=== PATIENT | female | born 2000 | race Caucasian/White ===

== ENCOUNTER 2021-03-21 05:42 | Emergency (ER) | payer MEDICAID ==
[~2021-03-21] VITALS: Ht 157.5 cm; Wt 51.0 kg
[~2021-03-21 05:42] MED LIST: BENZ1LOZ PO
[2021-03-21] MEDS ORDERED: magnesium 2GM in 50ml NS 50 ML IV ONE (06:40)
[2021-03-21] MEDS ORDERED: ringers solution, lacted 1,000 ML IV ONE (06:40)
[2021-03-21] MEDS ORDERED: haloperidol lactate 5mg/ml inj IM ONE (06:40)
[2021-03-21 06:50] LABS: CLARITY,URINE CLEAR (Clear); COLOR,URINE YELLOW (Yellow); GLUCOSE, URINE NEGATIVE (Neg); KETONES,URINE TRACE mg/dl (Neg); LEUKOCYTE ESTERASE ,URINE NEGATIVE (Neg); NITRITES, URINE NEGATIVE (Neg); OCCULT BLOOD,URINE LARGE (Neg); PH,URINE 6.5 (4.8-8.0); PROTEIN,URINE NEGATIVE (Neg); UROBILINOGEN,URINE 0.2 E.U/dL (0.2-1.0)
[2021-03-21 06:52] LABS: URINE HCG NEGATIVE (NEG)
[2021-03-21 06:53] LABS: UA COLLECTION TYPE CLN CATCH MIDSTREAM
[2021-03-21 07:03] LABS: SQUAMOUS EPITHELIAL CELL,UR MANY /LPF (FEW)
[2021-03-21 07:04] LABS: BACTERIA,URINE 1+ /HPF (Neg); TRANSITIONAL EPI CELLS,URINE FEW /HPF; WBC,URINE 0-4 /HPF (0-4)
[2021-03-21 07:34] LABS: BASOPHILS % (AUTO) 0.3 % (0-1); HEMATOCRIT 39.9 % (35.0-45.0); HEMOGLOBIN 13.6 g/dl (12.0-16.0); LYMPHOCYTES # (AUTO) 0.9 X10'3 (1.1-4.8); LYMPHOCYTES % (AUTO) 21.5 % (21-51); MEAN CORPUSCULAR HGB CONC 34.2 g/dL (33.0-36.5); MEAN CORPUSCULAR VOLUME 84.9 FL (78-98); MEAN PLATELET VOLUME 9.1 FL (7.4-10.4); MONOCYTES # (AUTO) 0.3 X10'3 (0-0.9); MONOCYTES % (AUTO) 7.1 % (2-12); NEUTROPHILS # (AUTO) 2.9 X10'3 (1.8-7.7); NEUTROPHILS % (AUTO) 70.1 % (42-75); PLATELET COUNT 225 X10'3 (140-440); RED CELL DISTRIBUTION WIDTH 12.5 % (11.5-14.5); WHITE BLOOD COUNT 4.1 X10'3 (4.5-11.0)
[2021-03-21 07:46] LABS: ALANINE AMINOTRANSFERASE 21 U/L (12-78); ALBUMIN 4.4 G/DL (3.4-5.0); ALBUMIN/GLOBULIN RATIO 1.2 (1.1-1.5); ALKALINE PHOSPHATASE 95 IU/L (20-180); ANION GAP 11 (8-16); ASPARTATE AMINO TRANSFERASE 18 U/L (10-37); BILIRUBIN,TOTAL 0.5 MG/DL (0.1-1.0); BLOOD UREA NITROGEN 10 MG/DL (7-18); BUN/CREATININE RATIO 16.7 (6.6-38.0); CALCIUM 8.8 MG/DL (8.5-10.1); CHLORIDE 104 MMOL/L (99-107); GLUCOSE 117 MG/DL (70-104); LIPASE 86 U/L (73-393); POTASSIUM 3.7 MMOL/L (3.5-5.1); SODIUM 140 MMOL/L (135-145); TOTAL CARBON DIOXIDE 24.6 MMOL/L (24-32); eGFR > 90 ML/MIN
[2021-03-21] MEDS ORDERED: diphenhydrAMINE 50 mg/ml inj IV ONE (08:40)
[2021-03-21] MEDS ORDERED: HALO5TAB PO (09:13)
[2021-03-21 11:12] VITALS: BP 132/68
== END 2021-03-21 09:35 | disposition home or self-care (01) ==
LOC: ER 05:43
DX: G43.D0 Abdominal migraine, not intractable (principal); R11.2 Nausea with vomiting, unspecified
CPT/HCPCS: 36415; 80053; 81001; 81025; 83690; 85025; 96365; 96366; 96372; 96375; 99284; J1200; J1630; J3475; J7120

== ENCOUNTER 2022-03-10 20:50 | Emergency (ER) | payer MEDICAID ==
[~2022-03-10] VITALS: Ht 157.5 cm; Wt 48.6 kg
[~2022-03-10 20:50] MED LIST changes: +HALO5TAB PO
[2022-03-10 20:52] VITALS: BP 128/83
[2022-03-10] MEDS ORDERED: hydrOXYzine 25 MG tablet PO ONE (21:25)
[2022-03-10] MEDS ORDERED: POLY17PO10 PO (21:26)
[2022-03-10] MEDS ORDERED: HYDR-3686 PO (21:26)
[2022-03-10] MEDS ORDERED: PHEN1SUP96 PR (21:26)
== END 2022-03-10 21:53 | disposition home or self-care (01) ==
LOC: ER 20:50
DX: K64.4 Residual hemorrhoidal skin tags (principal); F41.9 Anxiety disorder, unspecified; Z79.899 Other long term (current) drug therapy
CPT/HCPCS: 99283; Q0177

== ENCOUNTER 2023-06-10 22:42 | Emergency (ER) | payer MEDICAID ==
[~2023-06-10] VITALS: Ht 157.5 cm; Wt 54.5 kg
[~2023-06-10 22:42] MED LIST changes: +PHEN1SUP96 PR
[2023-06-10 22:45] VITALS: TEMP 98.8
[2023-06-11] MEDS ORDERED: HYDR-3965 PO (00:14)
[2023-06-11 01:13] VITALS: BP 117/82; PULSE 81; RESP 13; O2SAT 98
== END 2023-06-11 01:15 | disposition home or self-care (01) ==
LOC: ER 22:43
DX: S82.841A Displaced bimalleolar fracture of right lower leg, initial encounter for closed fracture (principal); Z79.899 Other long term (current) drug therapy; W01.0XXA Fall on same level from slipping, tripping and stumbling without subsequent striking against object, initial encounter; Y93.89 Activity, other specified; Y92.89 Other specified places as the place of occurrence of the external cause; Y99.8 Other external cause status
CPT/HCPCS: 29515; 73610; 99283; A6449

== ENCOUNTER 2023-06-26 09:46 | Day surgery (SDC) | payer MEDICAID ==
[2023-06-24 15:36] LABS: BILIRUBIN,URINE NEGATIVE (Neg); CLARITY,URINE CLEAR (Clear); COLOR,URINE YELLOW (Yellow); GLUCOSE, URINE NEGATIVE (Neg); KETONES,URINE TRACE mg/dl (Neg); LEUKOCYTE ESTERASE ,URINE NEGATIVE (Neg); NITRITES, URINE NEGATIVE (Neg); OCCULT BLOOD,URINE SMALL (Neg); PROTEIN,URINE NEGATIVE (Neg); UROBILINOGEN,URINE 0.2 E.U/dL (0.2-1.0)
[2023-06-24 15:38] LABS: BASOPHILS % (AUTO) 0.3 % (0-1); EOSINOPHILS # (AUTO) 0.3 X10'3 (0-0.9); EOSINOPHILS % (AUTO) 3.2 % (0-6); LYMPHOCYTES # (AUTO) 1.4 X10'3 (1.1-4.8); LYMPHOCYTES % (AUTO) 16.5 % (21-51); MEAN CORPUSCULAR HGB CONC 33.8 g/dL (33.0-36.5); MEAN CORPUSCULAR VOLUME 85.8 FL (78-98); MEAN PLATELET VOLUME 9.1 FL (7.4-10.4); MONOCYTES # (AUTO) 0.6 X10'3 (0-0.9); MONOCYTES % (AUTO) 7.3 % (2-12); NEUTROPHILS # (AUTO) 6.2 X10'3 (1.8-7.7); NEUTROPHILS % (AUTO) 72.7 % (42-75); PRE OP HEMATOCRIT 40.2 % (35.0-45.0); PRE OP HEMOGLOBIN 13.6 g/dL (12.0-16.0); PRE OP PLATELET COUNT 284 X10'3 (140-440); PRE OP WHITE BLOOD COUNT 8.5 10'3 (4.8-10.8); RED BLOOD COUNT 4.69 X10'6 (4.20-5.60); RED CELL DISTRIBUTION WIDTH 12.1 % (11.5-14.5)
[2023-06-24 15:41] LABS: MUCUS STRANDS MANY /LPF (Neg); SQUAMOUS EPITHELIAL CELL,UR MANY /LPF (FEW); UA COLLECTION TYPE CLN CATCH MIDSTREAM
[2023-06-24 15:42] LABS: TRANSITIONAL EPI CELLS,URINE FEW /HPF; WBC,URINE 0-4 /HPF (0-4)
[2023-06-24 15:43] LABS: BACTERIA,URINE FEW /HPF (Neg)
[2023-06-24 15:56] LABS: ALBUMIN 4.1 G/DL (3.4-5.0); ALKALINE PHOSPHATASE 102 IU/L (46-116); BLOOD UREA NITROGEN 10 MG/DL (7-18); BUN/CREATININE RATIO 16.7 (10.0-20.0); CALCIUM 9.1 MG/DL (8.5-10.1); CHLORIDE 102 MMOL/L (99-107); PRE OP ALT 17 U/L (30-65); PRE OP ANION GAP 9 (8-16); PRE OP AST 13 U/L (10-37); PRE OP BILIRUB, TOTAL 0.4 MG/DL (0.0-1.0); PRE OP GLUCOSE 100 MG/DL (70-104); PRE OP POTASSIUM 3.4 MMOL/L (3.4-5.1); PRE OP SODIUM 139 MMOL/L (135-145); TOTAL PROTEIN 8.3 G/DL (6.4-8.2); eGFR > 90 ML/MIN
[2023-06-24 16:29] LABS: HCG SERUM QL NEGATIVE
[2023-06-26] VITALS (9 sets, daily range): BP systolic 112–134; BP diastolic 74–95; PULSE 76–120; RESP 15–20; TEMP 99.9; O2SAT 94–100
[~2023-06-26] VITALS: Ht 157.5 cm; Wt 60.0 kg
[2023-06-26] MEDS: cefazolin 2gm/D5W 100mL 100 ML IV ONE (05:30)
[~2023-06-26 09:46] MED LIST changes: -BENZ1LOZ PO; +BUSP10TA3 PO; -HALO5TAB PO; +HYDR-3964 PO; +IBUP-1985 PO; +NORT25CA PO; +NORT75CA PO; +ONDA-103 PO; -PHEN1SUP96 PR; +famotidine 20mg tablet PO ONE; +ringers solution, lacted 1,000 ML IV SCH
[2023-06-26] MEDS ORDERED: bacitracin 15gm ointment TP ONE (11:54)
[2023-06-26] MEDS ORDERED: BUPIVAcaine 2.5mg/ml inj 50ml vial (contains preservative) ONE (11:54)
[2023-06-26] MEDS ORDERED: sevoflurane 250ml liquid IH ONE (12:27)
[2023-06-26] MEDS ORDERED: MIDAZolam 1 MG/ML 5ML VIAL ONE (12:41)
[2023-06-26] MEDS ORDERED: fentaNYL/PF 50MCG/1 ML 2ML syringe ONE ×2 (12:41→13:24)
[2023-06-26] MEDS ORDERED: propofol inj 20 ML IV ONE (13:03)
[2023-06-26] MEDS ORDERED: BUPIVAcaine/PF 7.5mg/ml (0.75%) 10ml vial ONE (13:03)
[2023-06-26] MEDS ORDERED: ROPIVAcaine 0.5% (5mg/ml) 30ml vial ONE (13:03)
[2023-06-26] MEDS ORDERED: labetalol 20mg/4ml (5mg/ml) syringe IV PRN (14:15)
[2023-06-26] MEDS ORDERED: morphine 2 MG/ML inj. syringe IV PRN (14:15)
[2023-06-26] MEDS ORDERED: meperidine/PF 25mg/ml syringe IV PRN ×3 (14:15)
[2023-06-26] MEDS ORDERED: enalaprilat dihydrate 2.5mg/2ml vial IV PRN (14:15)
[2023-06-26] MEDS ORDERED: ondansetron/PF 4mg/2ml inj IV PRN (14:15)
[2023-06-26] MEDS ORDERED: proCHLORperazine 10 MG/2 ml inj IV PRN (14:15)
[2023-06-26] MEDS ORDERED: morphine 4 MG/ML inj SYRINge IV PRN (14:15)
[2023-06-26] MEDS ORDERED: ondansetron/PF 4mg/2ml inj ONE (14:25)
[2023-06-26] MEDS: ringers solution, lacted 1,000 ML IV SCH (14:55)
== END 2023-06-26 15:55 | disposition home or self-care (01) ==
LOC: PAS 09:46 → EDSTATUS 12:30 → PAS 15:55
PROVIDERS: ATTEND Podiatrist Foot & Ankle Surgery
DX: S82.851A Displaced trimalleolar fracture of right lower leg, initial encounter for closed fracture (principal); G89.18 Other acute postprocedural pain; X58.XXXA Exposure to other specified factors, initial encounter; Y93.89 Activity, other specified; Y92.89 Other specified places as the place of occurrence of the external cause; Y99.8 Other external cause status
CPT/HCPCS: 27822; 36415; 64445; 64447; 73600; 80053; 81001; 82948; 84703; 85025; A6223; C1713; J0690; J1100; J2250; J2405; J2704; J2795; J3010; J3490; J7030; J7120; Z7506; Z7508; Z7512; 76000; A4618; A6449; A7000

== ENCOUNTER 2024-10-21 22:13 | Emergency (ER) | payer MEDICAID ==
[~2024-10-21] VITALS: Ht 157.5 cm; Wt 59.1 kg
[~2024-10-21 22:13] MED LIST changes: -IBUP-1985 PO; +IBUP600T52 PO; -famotidine 20mg tablet PO ONE; -ringers solution, lacted 1,000 ML IV SCH
[2024-10-21 22:19] VITALS: BP 135/89; PULSE 83; RESP 18; TEMP 98.2; O2SAT 100
--- NOTE | 2024-10-21 23:22 | Physician Documentation ---
History of Present Illness ~ Chief Complaint: Abscess Stated Complaint: SPIDER BITE Time Seen by MD: 23:16 Primary Medical Doctor: ESEQUIEL HERNANDEZ 24-year-old female presents to the ED with a complaint of a suspected spider bite on her right lower extremity. She states that the itchy area on her right calf developed on the . She states she has lots of anxiety. Denies any pain reports that the areas itchy. She has not used any lmfe-szi-qgycdeh remedies at this time Day of Onset: Oct 21, 2024 Medication Reconciliation Allergies: Coded Allergies: No Known Allergies (Unverified , 03/10/22) Scheduled Buspirone HCl (Buspirone HCl), 1 TAB PO BID, (Reported) Ibuprofen (Ibuprofen), 1 TAB PO BID, (Reported) Nortriptyline HCl (Nortriptyline HCl), 1 TAB PO HS, (Reported) Nortriptyline Hcl (Nortriptyline Hcl), 1 CAP PO HS, (Reported) Scheduled PRN Hydrocodone Bit/Acetaminophen (Hydrocodon-Acetaminophen 5-325), 1 TAB PO Q4H PRN for pain, (Reported) Ondansetron HCl (Ondansetron HCl), 1 TAB PO Q8H PRN for nausea/vomiting, (Reported) Past Medical History Past Medical History: Anxiety Past Surgical History: no surgical history Last Menstrual Period: Sep 30, 2024 Alcohol Use: None Drug Use: none Lives with: Family Lives In: Home Review of Systems All Other Systems at this time: Reviewed and Negative ROS As stated above in the HPI, otherwise all systems are reviewed and negative. Physical Exam Vital Signs: Temperature: 98.2, Source: Temporal, Heart Rate: 83, Respiratory Rate: 18, BP: 135/89, Pulse Oximetry: 100, Weight: 59.090 Oxygen Flow Rate: 0 Physical Exam General: Alert, no apparent distress. Extremities: Normal range of motion, no deformity. slight rash RLE no purulence, no flunctuantc non-painful Neurologic: Oriented x4. Psychiatric: Normal mood and affect. Skin: Normal color, warm and dry. No edema, no ecchymosis. Progress Results/Orders Results/Orders Vital Signs 10/21/24 22:19 Temp 98.2 Pulse 83 Resp 18 B/P (MAP) 135/89 Pulse Ox 100 O2 Flow Rate 0 Medical Decision Making Findings This is a very mild rash which may or may not have been caused by a bug bite. I reassured the patient extensively and reported that her anxiety is probably a larger issue than the rashes on her right lower extremity I advised her to use Benadryl and hydrocortisone cream which he reportedly has at home Differential Dx:Considerations: Include: Abscess, AIDS/HIV, Anthrax (cutaneous), Atopic dermatitis, Candidiasis, Contact dermatitis, Drug reaction, Erythema multiforme, Erysipelas, Gangrene, Herpes zoster, Herpes simplex, Hidradenitis suppurativa, Impetigo, Intertrigo, Lymes disease, Molluscum contagiosum, Osteomyelitis, Pediculosis, Pityriasis rosea, Psoriaisis, RMSF, Rosacea, Scabies, Scarlet fever, Tinea, Urticaria, Varicella, Viral exanthema, Other Departure Disposition: 01 HOME / SELF CARE / HOMELESS Impression: Primary Impression: Anxiety Additional Impression: Bug bite Condition: Stable Referrals: NO PRIMARY CARE PROVIDER (PCP) REINALDO BERTRAND NP Oct 21, 2024 23:22
== END 2024-10-22 00:03 | disposition home or self-care (01) ==
LOC: ER 22:13
DX: S80.861A Insect bite (nonvenomous), right lower leg, initial encounter (principal); L02.415 Cutaneous abscess of right lower limb; F41.9 Anxiety disorder, unspecified; Z79.899 Other long term (current) drug therapy; W57.XXXA Bitten or stung by nonvenomous insect and other nonvenomous arthropods, initial encounter; Y93.89 Activity, other specified; Y92.89 Other specified places as the place of occurrence of the external cause; Y99.8 Other external cause status
CPT/HCPCS: 99282

== ENCOUNTER 2025-01-22 23:00 | Emergency (ER) | payer MEDICAID ==
[~2025-01-22] VITALS: Ht 157.5 cm; Wt 56.8 kg
[2025-01-22 23:12] VITALS: BP 119/77; PULSE 88; RESP 16; O2SAT 98
--- NOTE | 2025-01-23 01:04 | Physician Documentation ---
History of Present Illness ~ Chief Complaint: Toe pain Stated Complaint: L FOOT LAC Time Seen by MD: 00:53 Primary Medical Doctor: ESEQUIEL HERNANDEZ Is a very pleasant 24-year-old female that presents to the emergency department for evaluation of right great toe swelling. Patient reports that she trimmed and cut off a piece of her toenail in the lateral side of the right foot yesterday's that have the tissues become swollen mildly erythematous around the nail bed. Patient is concerned about infection. Patient reports that she tends to perseverate on these things in his very concerned that the toe might be infected now. Patient will follow up with the primary care provider next week. Patient denies fever chills nausea vomiting diarrhea at this time. Patient is requesting antibiotics because she is concerned for infection. Tetanus witin 5 years: Yes Medication Reconciliation Allergies: Coded Allergies: No Known Allergies (Unverified , 01/22/25) Scheduled Buspirone HCl (Buspirone HCl), 1 TAB PO BID, (Reported) Ibuprofen (Ibuprofen), 1 TAB PO BID, (Reported) Nortriptyline HCl (Nortriptyline HCl), 1 TAB PO HS, (Reported) Nortriptyline Hcl (Nortriptyline Hcl), 1 CAP PO HS, (Reported) Scheduled PRN Hydrocodone Bit/Acetaminophen (Hydrocodon-Acetaminophen 5-325), 1 TAB PO Q4H PRN for pain, (Reported) Ondansetron HCl (Ondansetron HCl), 1 TAB PO Q8H PRN for nausea/vomiting, (Reported) Past Medical History Past Medical History: Anxiety Past Surgical History: no surgical history Alcohol Use: None Drug Use: none Lives with: Family Lives In: Home Review of Systems ROS As stated above in the HPI, otherwise all systems are reviewed and negative. Physical Exam Vital Signs: Temperature: 97.6, Source: Temporal, Heart Rate: 88, Respiratory Rate: 16, BP: 119/77, Pulse Oximetry: 98, Weight: 56.800 Physical Exam VITALS: Reviewed and as above. GENERAL: Alert, no apparent distress. MUSCULOSKELETAL No deformities, no edema SKIN: Warm and dry, mild edema with associated mild erythema noted on the lateral aspect of the right great toe around the nail bed, no drainage noted at this time. NEURO: Oriented x4, No motor or sensory deficit PSYCH: Normal mood and affect, no agitation Progress Results/Orders Results/Orders Vital Signs 01/22/25 23:12 Temp 97.6 Pulse 88 Resp 16 B/P (MAP) 119/77 Pulse Ox 98 Medical Decision Making Additional information obtaine: other Findings 24-year-old female presented with mild swelling and erythema of the right great toe following self-trimming and partial removal of the lateral toenail. She is concerned about infection and requests antibiotics. She denies systemic symptoms (fever, chills, GI complaints). Exam reveals mild periungual erythema and swelling, without fluctuance, purulence, or evidence of abscess. Clinical impression is mild, nonpurulent skin/soft tissue infection (SSTI), likely secondary to local trauma. No evidence of moderate/severe infection, abscess, or systemic involvement. Differential includes early cellulitis, paronychia, or local inflammatory reaction. Given the patient's anxiety and perseveration regarding infection, and mild objective findings, empiric oral antibiotics are reasonable. Cephalexin is indicated for skin and skin structure infections caused by susceptible bacteria, including Staphylococcus aureus and Streptococcus pyogenes. For adults, recommended dosing is 250 mg every 6 hours or 500 mg every 12 hours, typically for 714 days; shorter durations (57 days) may be considered for uncomplicated cases. No renal impairment or allergy reported. Patient educated on signs of worsening infection (increased pain, swelling, erythema, purulence, fever, systemic symptoms). Advised to follow up with PCP in one week and return to ED for any progression or new concerning symptoms. No need for wound culture at this time given mild presentation and absence of purulence. Risk/benefit of antibiotics discussed, including potential for adverse effects and resistance. Shared decision-making employed given patient preference and mild clinical findings. Discharged in stable condition. General Diff Dx:Considerations: Include: Abrasion, Contusion, Fracture, Hematoma, Laceration, Malunion, Neurovascular injury, Open fracture, Sprain, Ulcer, Other Knee Diff Dx:Considerations: Include: Abrasion, Arthritis, Contusion, DJD, Fracture-femur, Fracture-fibula, Fracture-patella, Fracture-tibia, Gout, Hematoma, Laceration, Meniscus injury, Neurovascular injury, Open fracture, Rheumatoid arthritis, Septic, Sprain, Sprain-MCL, Sprain-LCL, Sprain-ACL, Sprain-PCL, Other Ankle Diff Dx:Considerations: Include: Abrasion, Arthritis, Contusion, DJD, Fracture-metatarsal, Fracture-fibula, Fracture-tarsal, Fracture-tibia, Gout, Hematoma, Laceration, Malunion, Neurovascular injury, Nonunion, Open fracture, Osteomyelitis, Rheumatoid arthritis, Sprain, Septic, Ulcer, Other Foot Diff Dx:Considerations: Include: Abrasion, Arthritis, Cellulitis, Contusion, Dislocation, DJD, Fracture-metatarsal, Fracture-phalynx, Fracture- tarsal, Gout, Hematoma, Ingrown toenail, Laceration, Malunion, Neurovascular injury, Open fracture, Paronychia, Puncture, Rheumatoid, Sprain, Septic, Subungual hematoma, Ulcer, Other Toe Diff Dx:Considerations: Include: Abrasion, Cellulitis, Contusion, Dislocation, Felon, Fracture, Hematoma, Laceration, Neurovascular injury, Open fracture, Paronychia, Subungual hematoma, Other Departure Disposition: 01 HOME / SELF CARE / HOMELESS Impression: Primary Impression: Toe swelling Condition: Stable Additional Instructions: Your Diagnosis You came to the emergency department today because of swelling and redness around your right big toenail after trimming it. The doctor examined your toe and found signs of a mild infection. You are being sent home with antibiotics to treat this infection. Your Medications You have been prescribed cephalexin (also called Keflex), an antibiotic that treats skin infections. How to take it: Take 500 mg by mouth every 12 hours (twice a day), or as directed on your prescription bottle. How long to take it: Take the antibiotic for the full course prescribed, typically 7 to 14 days, even if your toe starts feeling better. Important: Do not skip doses or stop taking the medication early. Stopping too soon can make the infection come back or make bacteria harder to treat in the future. Taking Care of Your Toe at Home Keep it clean: Gently wash your toe with soap and water once or twice daily. Pat it dry with a clean towel. Elevate your foot: When sitting or lying down, prop your foot up on pillows. This helps reduce swelling. Wear comfortable shoes: Avoid tight shoes or socks that press on your toe. Do not trim the nail further: Let the nail grow out naturally and avoid cutting or picking at it. Possible Side Effects of Cephalexin Like all medications, cephalexin can cause side effects. The most common side effect is diarrhea. This usually goes away when you finish the antibiotic.[6] If diarrhea becomes severe or you notice blood in your stool, call your doctor right away. When to Return to the Emergency Department Come back to the emergency department or call your doctor right away if you notice any of these warning signs: The redness or swelling gets worse or spreads up your foot or leg You develop pus or drainage from the toe You develop a fever (temperature over 100.4F or 38C) The pain gets worse instead of better You develop severe diarrhea, especially with blood You have an allergic reaction (rash, hives, trouble breathing, swelling of your face or throat) Follow-Up Care See your primary care doctor within one week as planned. They will check your toe to make sure the infection is improving. If you cannot get an appointment within one week, call the office to let them know you need to be seen sooner. Questions? If you have any questions or concerns about your toe or your medications, call your primary care doctor's office or return to the emergency department. Referrals: NO PRIMARY CARE PROVIDER (PCP) Prescriptions Cephalexin*Monohydrate* (Keflex*) 500 Mg Capsule 1 CAP PO QID for 7 Days, #28 CAP Prov: TAYA BRADY 01/23/25 Education Educated: Patient Educated regarding: diagnosis, treatment, need for follow up Signature Scribe Signature: A Attestation: Scribed for Emergency,Department by PB Gaspar . 01/23/25 01:07 TAYA BRADY Jan 23, 2025 01:04
[2025-01-23] MEDS ORDERED: CEPH-585 PO (01:05)
[2025-01-23 01:20] VITALS: TEMP 97.6
== END 2025-01-23 01:22 | disposition home or self-care (01) ==
LOC: ER 23:01
DX: M79.89 Other specified soft tissue disorders (principal)
CPT/HCPCS: 99283